=== PATIENT | female | born 1970 | race Caucasian/White ===

== ENCOUNTER 2018-09-07 09:01 | Inpatient (IN) | payer OTHER ==
[~2018-09-07] VITALS: Ht 157.5 cm; Wt 78.9 kg
[~2018-09-07 09:01] MED LIST: ADVAIR HFA 115/12 GM; CARAFATE1 G; CIPRO500 MG PO; ESGIC-PLUS TABL1 TAB; HYZAAR 50-12.1 UDTAB; PREVACID N1 COMB.PKG; RELAFEN500 MG PO; SINGULAIR10 MG; XOPENEX HFA15 GM
--- NOTE | 2018-09-07 09:38 | NUR ---
PTE REFERIDA POR EL REFIERE TENER DIFICULTAD RESPIRATORIA Y DOLOR DE DOMINIC.
--- NOTE | 2018-09-07 10:09 | NUR ---
.EUNICE EVALUA PACIENTE Y ORDENA TRATAMIENTO MEDICO DEL CUAL SE ORIENTA PACIENTE Y FAMILIAR. PACIENTE REFIERE ENTENDER. SE COLECTAN MUESTRAS DE LABORATORIOS Y ADMINISTRAN MEDICAMENTOS MATY ORDEN MEDICA SIGUIENDO MEDIDAS ASEPTICAS. SE NOTIFICA ESTUDIO DE RX A PERSONAL DE TURNO. SE NOTIFICAN ABG A PERSONAL DE TERAPIA RESPIRATORIA.SE MANTIENE PACIENTE BAJO OBSERVACION POR CAMBIOS.
--- NOTE | 2018-09-07 12:55 | NUR ---
PENDIENTE CONSULTA CON
--- NOTE | 2018-09-07 16:34 | NUR ---
SE RECIBE FEMINA ALERTA Y ORIENTADA POR PATY ESFERAS, EN CAMA CON BARANDAS SEGURAS Y ELEVADAS. EN COMPANIA DE FAMILIAR. AREA DE VENOPUNCION TRICIA DE EDEMA O ENROJECIMIENTO. VENTURY MASK PRESENTE. SE MANTIENE EN ESPERA DE MEDICO CONSULTADO.
== END 2018-10-10 16:03 | disposition home or self-care (01) | DRG 193 ==
LOC: ER 09:01 → MEDJ 16:54
PROVIDERS: ADMIT Internal Medicine Cardiovascular Disease
PROC: 3E0F7GC Introduction of Other Therapeutic Substance into Respiratory Tract, Via Natural or Artificial Opening (ICD-10-PCS; 2018-09-07)
PROC: 4A033R1 Measurement of Arterial Saturation, Peripheral, Percutaneous Approach (ICD-10-PCS; 2018-09-07)
PROC: 8E0ZXY6 Isolation (ICD-10-PCS; 2018-09-07)
PROC: BW24ZZZ Computerized Tomography (CT Scan) of Chest and Abdomen (ICD-10-PCS; principal; 2018-09-08)
DX: J10.08 Influenza due to other identified influenza virus with other specified pneumonia (principal); J80 Acute respiratory distress syndrome; J15.7 Pneumonia due to Mycoplasma pneumoniae; J44.1 Chronic obstructive pulmonary disease with (acute) exacerbation; J45.52 Severe persistent asthma with status asthmaticus; I10 Essential (primary) hypertension